=== PATIENT | male | born 1975 | race Hispanic/Latino ===

== ENCOUNTER 2022-05-04 06:02 | Day surgery (SDC) | payer OTHER ==
[2022-05-02 09:57] LABS: BASOPHILS % (AUTO) 0.8 % (0.0-5.0); EOSINOPHILS % (AUTO) 2.2 % (0.0-8.0); HEMATOCRIT 47.1 % (42-54); LYMPHOCYTES % (AUTO) 28.7 % (21.0-51.0); MEAN CORPUSCULAR HEMOGLOBIN 29.1 pg (27.0-33.0); MEAN CORPUSCULAR HGB CONC 35.2 g/dL (32.0-36.0); MEAN CORPUSCULAR VOLUME 82.5 fL (79-99); MONOCYTES % (AUTO) 6.2 % (3.0-13.0); PLATELET COUNT (AUTO) 235 K/uL (130-400); RED BLOOD CELL COUNT(AUTO) 5.71 MIL/uL (4.50-6.20); RED CELL DISTRIBUTION WIDTH 12.9 % (11.0-15.5); WHITE BLOOD COUNT (AUTO) 7.2 K/uL (4.8-10.8)
[2022-05-02 10:10] LABS: CARBON DIOXIDE 31 mmol/L (21-32); CHLORIDE 103 mmol/L (101-111); GLOMERULAR FILTR. RATE CALC 86 mL/min (>60); GLUCOSE,RANDOM 105 mg/dL (70-105); POTASSIUM 3.9 mmol/L (3.5-5.1); SODIUM SERUM 138 mmol/L (136-145); UREA NITROGEN, BLOOD 12 mg/dL (7-18)
[2022-05-02 11:46] LABS: CRP QUANTITATIVE < 2.00 mg/L (0.00-9.0)
[2022-05-03 07:54] VITALS: BP 146/81
[2022-05-04] VITALS (17 sets, daily range): BP systolic 110–142; BP diastolic 65–87
[~2022-05-04] VITALS: Ht 188 cm; Wt 111.9 kg
[2022-05-04] MEDS: CEFAZOLIN SODIUM 1 GM VIAL IVP SCH ×2 (05:00→07:45)
[~2022-05-04 06:02] MED LIST: BUPIVACAINE/PF 0.25% 30ML VIAL IJ ONE; CYCL-309 PO; FLUT16H NASAL; LIDOP TP; MELO-108 PO; METF-446 PO; SERT-440 PO; SIMV80TA91 PO; TRAZ-187 PO
[2022-05-04] MEDS ORDERED: 0.9%NACL 1000ML 1,000 ML IV ONE (06:27)
[2022-05-04] MEDS ORDERED: ONDANSETRON 4MG INJ ONE ×3 (07:04→09:11)
[2022-05-04] MEDS ORDERED: LIDOCAINE PF 100MG/5ML (2%) SYRINGE 5ML ONE (07:04)
[2022-05-04] MEDS ORDERED: SUCCINYLCHOLINE 200MG/10ML SYR ONE (07:04)
[2022-05-04] MEDS ORDERED: DEXAMETHASONE SOD PHOSPHATE 10MG/ML 1ML VIAL ONE (07:04)
[2022-05-04] MEDS ORDERED: ROCURONIUM 10MG/1ML SYR 10 MG/ML ML ONE (07:05)
[2022-05-04] MEDS ORDERED: PROPOFOL 10 MG/ML 20ML VIAL IV ONE ×2 (07:05→07:30)
[2022-05-04] MEDS ORDERED: NEOSTIGMINE 5MG/5ML SYR IV ONE (07:05)
[2022-05-04] MEDS ORDERED: MIDAZOLAM HCL 1 MG/ML 2ML VIAL ONE (07:05)
[2022-05-04] MEDS ORDERED: GLYCOPYRROLATE 1 MG/5 ML SYRINGE ONE (07:05)
[2022-05-04] MEDS ORDERED: FENTANYL CITRATE PF 50 MCG/1 ML 2ML VIAL ONE (07:05)
[2022-05-04] MEDS ORDERED: MEPERIDINE-PF 25 MG/ML SYG ONE ×2 (08:03→09:12)
[2022-05-04] MEDS ORDERED: ACET-2079 PO (08:53)
[2022-05-04] MEDS ORDERED: KETOROLAC 30MG VIAL (30MG/ML) ONE (09:11)
== END 2022-05-04 10:30 | disposition home or self-care (01) ==
LOC: DAH 06:02
PROVIDERS: ATTEND Student in an Organized Health Care Education/Training Program
DX: M23.321 Other meniscus derangements, posterior horn of medial meniscus, right knee (principal); M94.261 Chondromalacia, right knee; M94.262 Chondromalacia, left knee; M67.51 Plica syndrome, right knee; I10 Essential (primary) hypertension; E66.9 Obesity, unspecified; E11.9 Type 2 diabetes mellitus without complications; Z72.89 Other problems related to lifestyle; Z79.899 Other long term (current) drug therapy; Z68.36 Body mass index [BMI] 36.0-36.9, adult
CPT/HCPCS: 82040; 80048; 85025; 84134; 86140; 87426; 36415; 29881; 82948 ×2; J7120; A4649 ×2; J3010; J0690; J0330; J3490 ×2; J1100; J2710; J7030; J2001; J2250; J2704 ×2; J2405 ×3; J1885; J2175 ×2; A6223; A5120; A4215; A4223; A4222; A4221; A4663; A6450

== ENCOUNTER 2023-07-19 05:47 | Day surgery (SDC) | payer OTHER ==
[2023-07-17 10:32] VITALS: BP 146/89; PULSE 59; RESP 13
[2023-07-17 10:32] LABS: BASOPHILS # (AUTO) 0.05 K/uL (0.00-0.20); BASOPHILS % (AUTO) 0.8 % (0.0-5.0); EOSINOPHILS # (AUTO) 0.15 K/uL (0.00-0.70); EOSINOPHILS % (AUTO) 2.4 % (0.0-8.0); HEMATOCRIT 45.9 % (42-54); IMMATURE GRANULOCYTE ABSOLUTE 0.01 K/uL (0-1); LYMPHOCYTES # (AUTO) 2.3 K/uL (1.0-4.8); LYMPHOCYTES % (AUTO) 37.4 % (21.0-51.0); MEAN CORPUSCULAR HEMOGLOBIN 29.6 pg (27.0-33.0); MEAN CORPUSCULAR HGB CONC 35.3 g/dL (32.0-36.0); MEAN CORPUSCULAR VOLUME 83.9 fL (79-99); MONOCYTES # (AUTO) 0.5 K/uL (0.1-1.0); MONOCYTES % (AUTO) 8.3 % (3.0-13.0); NEUTROPHILS # (AUTO) 3.1 K/uL (1.8-7.7); NEUTROPHILS % (AUTO) 50.9 % (40.0-77.0); PLATELET COUNT (AUTO) 231 K/uL (130-400); RED BLOOD CELL COUNT(AUTO) 5.47 MIL/uL (4.50-6.20); RED CELL DISTRIBUTION WIDTH 12.6 % (11.0-15.5); WHITE BLOOD COUNT (AUTO) 6.2 K/uL (4.8-10.8)
[2023-07-17 10:42] LABS: CREATININE 0.9 mg/dL (0.5-1.5); POTASSIUM 4.3 mmol/L (3.5-5.1)
[2023-07-19] VITALS (15 sets, daily range): BP systolic 130–152; BP diastolic 57–90; PULSE 62–109; RESP 10–20
[~2023-07-19] VITALS: Ht 188 cm; Wt 123.5 kg
[~2023-07-19 05:47] MED LIST changes: -BUPIVACAINE/PF 0.25% 30ML VIAL IJ ONE; +CETI10TA57 PO; +GABA300C PO; -METF-446 PO
[2023-07-19] MEDS ORDERED: 0.9%NACL 1000ML 1,000 ML IV ONE (06:20)
[2023-07-19] MEDS ORDERED: BUPIVACAINE/PF 0.25% 30ML VIAL IJ ONE (06:35)
[2023-07-19] MEDS: CEFAZOLIN SODIUM 2 GM VIAL ONE ×2 (07:01→07:58)
[2023-07-19] MEDS ORDERED: GLYCOPYRROLATE 1 MG/5 ML SYRINGE ONE (07:10)
[2023-07-19] MEDS ORDERED: SUCCINYLCHOLINE 200MG/10ML SYR ONE (07:10)
[2023-07-19] MEDS ORDERED: LIDOCAINE PF 100MG/5ML (2%) SYRINGE 5ML ONE (07:10)
[2023-07-19] MEDS ORDERED: DEXAMETHASONE SOD PHOSPHATE 10MG/ML 1ML VIAL ONE (07:10)
[2023-07-19] MEDS ORDERED: ONDANSETRON 4MG INJ ONE ×2 (07:10→08:29)
[2023-07-19] MEDS ORDERED: PROPOFOL 10 MG/ML 20ML VIAL IV ONE ×2 (07:10→07:33)
[2023-07-19] MEDS ORDERED: NEOSTIGMINE METHYLSULFATE 1MG/ML IV ONE (07:10)
[2023-07-19] MEDS ORDERED: FENTANYL CITRATE PF 50 MCG/1 ML 2ML VIAL ONE ×2 (07:11→08:15)
[2023-07-19] MEDS ORDERED: MIDAZOLAM HCL 1 MG/ML 2ML VIAL ONE (07:11)
[2023-07-19] MEDS ORDERED: ROCURONIUM BROMIDE 10MG/1ML 5ML VL ONE (07:14)
[2023-07-19] MEDS ORDERED: DOCU-116 PO (08:03)
[2023-07-19] MEDS ORDERED: TRAM100T40 PO (08:03)
== END 2023-07-19 12:10 | disposition home or self-care (01) ==
LOC: DAH 05:47
PROVIDERS: ATTEND Student in an Organized Health Care Education/Training Program
DX: S83.232A Complex tear of medial meniscus, current injury, left knee, initial encounter (principal); M17.12 Unilateral primary osteoarthritis, left knee; M22.42 Chondromalacia patellae, left knee; M67.52 Plica syndrome, left knee; M65.861 Other synovitis and tenosynovitis, right lower leg; M79.4 Hypertrophy of (infrapatellar) fat pad; I10 Essential (primary) hypertension; E11.9 Type 2 diabetes mellitus without complications; E66.9 Obesity, unspecified; E78.5 Hyperlipidemia, unspecified; G47.00 Insomnia, unspecified; Z79.899 Other long term (current) drug therapy; Z98.890 Other specified postprocedural states; W19.XXXA Unspecified fall, initial encounter; Y93.89 Activity, other specified; Y92.89 Other specified places as the place of occurrence of the external cause; Y99.8 Other external cause status; Z68.36 Body mass index [BMI] 36.0-36.9, adult
CPT/HCPCS: 36415; 80048; 85025; 29881; 82948 ×3; A4663; J7030 ×2; A4649 ×3; J3010 ×2; J0330; J3490 ×2; J1100; J0665; J2001; J2250; J2704 ×2; J2405 ×2; J2710; J0690; A6223; A5120; A4215; A4223; A4222; A4221; A6450